=== PATIENT | male | born 1975 | race Caucasian/White ===

== ENCOUNTER 2021-09-14 19:31 | Emergency (ER) | payer SELFPAY ==
[~2021-09-14] VITALS: Ht 177.8 cm; Wt 81.6 kg
[~2021-09-14 19:31] MED LIST: BIAXIN500 MG PO; CLARITIN10 MG PO
[2021-09-14 19:43] VITALS: BP 164/97
[2021-09-14] MEDS ORDERED: VIBRAMYCIN100 MG PO (22:48)
[2021-09-14] MEDS ORDERED: CLEOCIN HCL300 MG PO (22:48)
== END 2021-09-14 23:00 | disposition home or self-care (01) ==
LOC: ED 19:31
DX: S61.212A Laceration without foreign body of right middle finger without damage to nail, initial encounter (principal); Z88.0 Allergy status to penicillin; Z88.2 Allergy status to sulfonamides; W54.8XXA Other contact with dog, initial encounter; Y93.89 Activity, other specified; Y92.89 Other specified places as the place of occurrence of the external cause; Y99.8 Other external cause status